=== PATIENT | female | born 1985 | race Caucasian/White ===

== ENCOUNTER 2016-07-30 09:01 | Emergency (ER) | payer MEDICARE, MEDICAID ==
[2016-07-30 09:24] VITALS: BP 111/54
--- NOTE | 2016-07-30 10:43 | UC ---
Skin Complaint HPI - HPI Summary HPI Summary: PT IS 14 WEEKS . HERE TODAY FOR LEFT FOOT PLANTAR LESION. PT THOUGHT IT WAS A CORN. HAS USING A TOPICAL SALVE TO THE AREA. AREA IS GETTING BIGGER AND PAINFUL. having some irritation at this time and painful to walk. been taking APAP as she is . aware no more than 600 mg PO QID. [ End ] - History of Current Complaint Chief Complaint: UCLowerExtremity Time Seen by Provider: 07/30/16 10:34 Stated Complaint: LEFT FOOT COMPLAINT Hx Obtained From: Patient Hx Last Menstrual Period: APR 16, 2016 ?: Yes Onset/Duration: Gradual Onset Skin Exposure Onset/Duration: Weeks Ago Onset Severity: Mild Current Severity: Moderate Location: Foot (Left) Aggravating: OTC Meds Alleviating: Nothing - Allergy/Home Medications Allergies/Adverse Reactions: Allergies Allergy/AdvReac Type Severity Reaction Status Date / Time Methadone Allergy Severe Altered Verified 07/30/16 09:16 Mental Status Morphine Allergy Severe Altered Verified 07/30/16 09:16 Mental Status Ethinyl Estradiol Allergy Hives Verified 07/30/16 09:16 [From NuvaRing] Etonogestrel [From NuvaRing] Allergy Hives Verified 07/30/16 09:16 Medroxyprogesterone Allergy Hives Verified 07/30/16 09:16 [From Depo-Provera] control Allergy Pain Uncoded 07/30/16 09:16 Review of Systems Constitutional: Negative Skin: Other - skin on left foot concern Eyes: Negative ENT: Negative Respiratory: Negative Cardiovascular: Negative Gastrointestinal: Negative Genitourinary: Negative Motor: Negative Neurovascular: Negative Musculoskeletal: Negative Neurological: Negative Psychological: Negative All Other Systems Reviewed And Are Negative: Yes PMH/Surg Hx/FS Hx/Imm Hx Previously Healthy: Yes Cardiovascular History Of: Reports: Hypertension Respiratory History Of: Reports: Asthma Psychological History Of: Reports: Depression - HX OF - Surgical History Surgical History: Yes Surgery Procedure, Year, and Place: carpel tunnel in both wrists [facility]-2014. shoulder surgery Nov 2014 - Social History Occupation: Employed Full-time Lives: With Family Alcohol Use: None Substance Use Type: None Smoking Status (MU): Light Every Day Tobacco Smoker Type: Cigarettes Amount Used/How Often: 6 CIGS PER DAY Have You Smoked in the Last Year: Yes Household Exposure Type: Cigarettes Physical Exam Triage Information Reviewed: Yes Appearance: Well-Appearing, No Pain Distress, Well-Nourished Vital Signs: Initial Vital Signs Temp 97.9 F 07/30/16 09:17 Pulse 74 07/30/16 09:17 Resp 16 07/30/16 09:17 BP 111/54 07/30/16 09:17 Pulse Ox 99 07/30/16 09:17 Vital Signs Reviewed: Yes Eye Exam: Normal ENT Exam: Normal Respiratory Exam: Normal Cardiovascular Exam: Normal Musculoskeletal Exam: Normal Neurological Exam: Normal Psychological Exam: Normal Skin Exam: Normal Skin: Positive: Other - left plantar foot with dried salisylic acid on it, some redness and excoriation around the corn and tenderness to palpation. no discharge. no induration. no streaking. Course/Dx - Diagnoses Provider Diagnoses: corn on left plantar aspect of foot Discharge - Discharge Plan Condition: Good Disposition: HOME Patient Education Materials: Plantar Wart (ED) Referrals: PETRA Barboza [Primary Care Provider] - 3 Days KEELEY GARCIA [Doctor of Podiatric Medicine] - As Soon As Possible (podiatry referral ) Additional Instructions: You appear to have a plantar CORN/CALLOUS at this time -- I printed the wart information as it was the closest to your diagnosis of the options I had. Please call a podiatry doctor to seek care GRANT. Thank you
== END 2016-07-30 11:04 | disposition home or self-care (01) ==
LOC: UCCORT 09:01
DX: O26.892 Other specified pregnancy related conditions, second trimester (principal); L84 Corns and callosities; Z3A.15 15 weeks gestation of pregnancy; I10 Essential (primary) hypertension; J45.909 Unspecified asthma, uncomplicated; F32.9 Major depressive disorder, single episode, unspecified; Z88.8 Allergy status to other drugs, medicaments and biological substances; Z88.5 Allergy status to narcotic agent; F17.210 Nicotine dependence, cigarettes, uncomplicated
CPT/HCPCS: 99211; G0463

== ENCOUNTER 2016-12-05 08:57 | Emergency (ER) | payer MEDICARE, MEDICAID ==
--- NOTE | 2016-12-05 09:24 | UC ---
Throat Pain/[place] HPI - HPI Summary HPI Summary: Patient has had increased sinus pressure and AMOS for the past 2 weeks, she is 35 weeks . she has alsow had some chest tightness and wheezing, - History of Current Complaint Stated Complaint: SINUS COMPLAINT Time Seen by Provider: 12/05/16 09:06 Hx Obtained From: Patient Hx Last Menstrual Period: APR 16, 2016 ?: No Onset/Duration: Sudden Onset, Lasting Weeks Severity: Severe Associated Signs & Symptoms: Positive: Dysphagia, Sinus Discomfort, Nasal Discharge - Allergies/Home Medications Allergies/Adverse Reactions: Allergies Allergy/AdvReac Type Severity Reaction Status Date / Time Methadone Allergy Severe Altered Verified 07/30/16 09:16 Mental Status Morphine Allergy Severe Altered Verified 07/30/16 09:16 Mental Status Ethinyl Estradiol Allergy Hives Verified 07/30/16 09:16 [From NuvaRing] Etonogestrel [From NuvaRing] Allergy Hives Verified 07/30/16 09:16 Medroxyprogesterone Allergy Hives Verified 07/30/16 09:16 [From Depo-Provera] control Allergy Pain Uncoded 07/30/16 09:16 PMH/Surg Hx/FS Hx/Imm Hx Previously Healthy: Yes - Surgical History Surgical History: Yes Surgery Procedure, Year, and Place: carpel tunnel in both wrists [facility]-2014. shoulder surgery Nov 2014 - Family History Known Family History: Negative: Cardiac Disease, Hypertension - Social History Alcohol Use: None Substance Use Type: None Smoking Status (MU): Light Every Day Tobacco Smoker Type: Cigarettes Amount Used/How Often: 6 CIGS PER DAY Have You Smoked in the Last Year: Yes Household Exposure Type: Cigarettes Review of Systems Constitutional: Negative Skin: Negative Eyes: Negative ENT: Sore Throat, Ear Ache, Nasal Discharge, Sinus Congestion, Sinus Pain/ Tenderness Respiratory: Cough Cardiovascular: Negative Gastrointestinal: Negative Genitourinary: Negative Motor: Negative Neurovascular: Negative Musculoskeletal: Negative Neurological: Negative Psychological: Negative Is Patient Immunocompromised?: No All Other Systems Reviewed And Are Negative: Yes Physical Exam Triage Information Reviewed: Yes Appearance: Well-Nourished, Ill-Appearing, Pain Distress Vital Signs Reviewed: Yes Eye Exam: Normal ENT: Positive: Pharyngeal erythema, Nasal congestion, Nasal drainage, TM bulging Dental Exam: Normal Neck exam: Normal Respiratory Exam: Normal Respiratory: Positive: Chest non-tender, No respiratory distress, No accessory muscle use, Wheezing, Expiration Cardiovascular Exam: Normal Cardiovascular: Positive: RRR, No Murmur, Pulses Normal Abdominal Exam: Normal Abdomen Description: Positive: Nontender, No Organomegaly, Soft Bowel Sounds: Positive: Present Musculoskeletal Exam: Normal Neurological Exam: Normal Psychological Exam: Normal Skin Exam: Normal Throat Pain/Nasal Course/Dx - Course Course Of Treatment: hx obtained, exam performed ,meds reviewed, treated for sinusitis - Differential Dx/Diagnosis Differential Diagnosis/HQI/PQRI: Influenza, Laryngitis, Pharyngitis, Sinusitis, URI Provider Diagnoses: SInusitis. wheezing Discharge - Discharge Plan Condition: Stable Disposition: HOME Patient Education Materials: Sinusitis (ED) Additional Instructions: 1. take the medication as prescribed. 2. Get plenty of rest and increase fluid intake 3. Tylenol for headache and fever 4. Follow up with any symtpoms worsening
[2016-12-05 09:25] VITALS: BP 113/78
== END 2016-12-05 09:50 | disposition home or self-care (01) ==
LOC: UCCORT 08:57
DX: O26.893 Other specified pregnancy related conditions, third trimester (principal); J32.9 Chronic sinusitis, unspecified; R06.2 Wheezing; Z3A.35 35 weeks gestation of pregnancy; Z88.5 Allergy status to narcotic agent; Z88.8 Allergy status to other drugs, medicaments and biological substances; F17.210 Nicotine dependence, cigarettes, uncomplicated
CPT/HCPCS: 99212; G0463

== ENCOUNTER 2016-12-11 08:11 | Emergency (ER) | payer MEDICARE, MEDICAID ==
[2016-12-11 08:23] VITALS: BP 135/74
--- NOTE | 2016-12-11 08:46 | UC ---
Throat Pain/[place] HPI - HPI Summary HPI Summary: Nasal congestion for a few days and she has been on amoxacillin without much help. She now feels like she has "big luge" in the back of her throat with mild sore throat. no fever. no daily medications. she has allergy to bee sting but hx of angioedema. - History of Current Complaint Chief Complaint: UCRespiratory Stated Complaint: SORE THROAT Time Seen by Provider: 12/11/16 08:27 Hx Obtained From: Patient Hx Last Menstrual Period: APR 16, 2016 ?: Yes Onset/Duration: Gradual Onset, Lasting Hours Severity: Moderate Cough: None Associated Signs & Symptoms: Positive: FB Sensation, Sinus Discomfort, Nasal Discharge. Negative: Fever, Vomiting, Rash - Allergies/Home Medications Allergies/Adverse Reactions: Allergies Allergy/AdvReac Type Severity Reaction Status Date / Time Methadone Allergy Severe Altered Verified 12/11/16 08:16 Mental Status Morphine Allergy Severe Altered Verified 12/11/16 08:16 Mental Status Ethinyl Estradiol Allergy Hives Verified 12/11/16 08:16 [From NuvaRing] Etonogestrel [From NuvaRing] Allergy Hives Verified 12/11/16 08:16 Medroxyprogesterone Allergy Hives Verified 12/11/16 08:16 [From Depo-Provera] control Allergy Pain Uncoded 12/11/16 08:16 Home Medications: Home Medications Hydrocodone-Acetaminophen [Hydrocodone/Acetaminophen 10-325 mg] 1 tab QID PRN [History Confirmed 12/11/16] Ondansetron TAB* [Zofran 4 MG Tab*] 1 tab BID PRN 12/11/16 [History Confirmed ] PMH/Surg Hx/FS Hx/Imm Hx Previously Healthy: No - bee sting allergy - Surgical History Surgical History: Yes Surgery Procedure, Year, and Place: carpel tunnel in both wrists [facility]-2014. shoulder surgery Nov 2014 - Family History Known Family History: Negative: Cardiac Disease, Hypertension - Social History Lives: With Family Alcohol Use: None Substance Use Type: None Smoking Status (MU): Light Every Day Tobacco Smoker Type: Cigarettes Amount Used/How Often: 6 CIGS PER DAY Have You Smoked in the Last Year: Yes Household Exposure Type: Cigarettes - Immunization History Most Recent Influenza Vaccination: NONE 2017 Review of Systems ENT: Sore Throat, Sinus Congestion Respiratory: Negative All Other Systems Reviewed And Are Negative: Yes Physical Exam Triage Information Reviewed: Yes Appearance: Well-Appearing, No Pain Distress, Well-Nourished Vital Signs: Initial Vital Signs Temp 97.8 F 12/11/16 08:18 Pulse 82 12/11/16 08:18 Resp 18 12/11/16 08:18 BP 135/74 12/11/16 08:18 Pulse Ox 99 12/11/16 08:18 Vital Signs Reviewed: Yes ENT: Positive: Other: - uvula swelling without tonsillar pillar swelling or swelling of tongue, soft palate or lips.. Negative: Tonsillar swelling, Tonsillar exudate, Trismus, Muffled/hoarse voice Neck exam: Normal Neck: Positive: Supple, Nontender, No Lymphadenopathy Respiratory Exam: Normal Cardiovascular Exam: Normal Abdominal Exam: Normal Musculoskeletal Exam: Normal Neurological Exam: Normal Psychological Exam: Normal Skin Exam: Normal Throat Pain/Nasal Course/Dx - Course Course Of Treatment: we discussed possible allergic reaction but there has been nothing new. she swallowed a bug yesterday but no obvious sting or bite. this started this mrbrian .she has had congestion and post nasal drip. no other signs of angioedema. - Differential Dx/Diagnosis Differential Diagnosis/HQI/PQRI: Epiglottitis, Foreign Body, Influenza, Laryngitis, Axel's Angina, Mononucleosis, Otitis Media, Peritonsillar Abscess , Pharyngitis, Tonsillitis, URI Provider Diagnoses: uvula swelling. uvulaitis. Discharge - Discharge Plan Condition: Good Disposition: HOME Patient Education Materials: Uvulitis (ED) Referrals: Rosa Crowell MD [Primary Care Provider] - If Needed
== END 2016-12-11 08:54 | disposition home or self-care (01) ==
LOC: UCCORT 08:11
DX: K12.2 Cellulitis and abscess of mouth (principal); Z72.0 Tobacco use; Z88.5 Allergy status to narcotic agent; Z91.030 Bee allergy status; Z88.8 Allergy status to other drugs, medicaments and biological substances
CPT/HCPCS: 87651; 99211; G0463

== ENCOUNTER 2017-05-10 07:05 | Emergency (ER) | payer MEDICARE, MEDICAID ==
[2017-05-10 07:25] VITALS: BP 143/75
--- NOTE | 2017-05-10 07:34 | UC ---
Throat Pain/[place] HPI - HPI Summary HPI Summary: sore throat x 1 day + fever, chills, no cough, + nasal congestion - History of Current Complaint Chief Complaint: UCRespiratory Stated Complaint: ST/NECK PAIN/SINUS Time Seen by Provider: 05/10/17 07:28 Hx Obtained From: Patient Hx Last Menstrual Period: 04/26/17 ?: No Onset/Duration: Gradual Onset, Lasting Days - 1, Still Present Severity: Moderate Pain Intensity: 6 Cough: None Associated Signs & Symptoms: Positive: Sinus Discomfort, Nasal Discharge, Fever. Negative: Dysphagia, FB Sensation, Drooling, Wheezing, Hoarseness, Rash - Allergies/Home Medications Allergies/Adverse Reactions: Allergies Allergy/AdvReac Type Severity Reaction Status Date / Time MS Methadone [Methadone] Allergy Severe Altered Verified 05/10/17 07:18 Mental Status MS Morphine [Morphine] Allergy Severe Altered Verified 05/10/17 07:18 Mental Status MS Ethinyl Estradiol Allergy Hives Verified 05/10/17 07:18 [From NuvaRing] MS Etonogestrel Allergy Hives Verified 05/10/17 07:18 [From NuvaRing] MS Medroxyprogesterone Allergy Hives Verified 05/10/17 07:18 [From Depo-Provera] control Allergy Pain Uncoded 05/10/17 07:18 Home Medications: Home Medications Bcp Starts With J 1 tab PO DAILY 05/10/17 [History] Lisinopril 5 mg PO BID 05/10/17 [History Confirmed 05/10/17] PMH/Surg Hx/FS Hx/Imm Hx Cardiovascular History: Hypertension Respiratory History: Asthma - Surgical History Surgical History: Yes Surgery Procedure, Year, and Place: carpel tunnel in both wrists [facility]-2014. shoulder surgery Nov 2014 - Family History Known Family History: Negative: Cardiac Disease, Hypertension - Social History Alcohol Use: None Substance Use Type: None Smoking Status (MU): Light Every Day Tobacco Smoker Type: Cigarettes Amount Used/How Often: 5 CIGS PER DAY Have You Smoked in the Last Year: Yes Household Exposure Type: Cigarettes - Immunization History Most Recent Influenza Vaccination: NONE 2016 Review of Systems Constitutional: Fever, Chills, Fatigue Skin: Negative Eyes: Negative ENT: Sore Throat, Nasal Discharge, Sinus Congestion Respiratory: Negative Cardiovascular: Negative Gastrointestinal: Negative Is Patient Immunocompromised?: No All Other Systems Reviewed And Are Negative: Yes Physical Exam Triage Information Reviewed: Yes Appearance: Well-Appearing, No Pain Distress, Well-Nourished Vital Signs: Initial Vital Signs Temp 98.1 F 05/10/17 07:19 Pulse 91 05/10/17 07:19 Resp 18 05/10/17 07:19 BP 143/75 05/10/17 07:19 Pulse Ox 99 05/10/17 07:19 Vital Signs Reviewed: Yes Eyes: Positive: Conjunctiva Clear ENT: Positive: Normal ENT inspection, Hearing grossly normal, Pharyngeal erythema, Nasal congestion, TMs normal. Negative: Sinus tenderness Neck: Positive: Supple, Nontender, No Lymphadenopathy Respiratory Exam: Normal Respiratory: Positive: Chest non-tender, Lungs clear, Normal breath sounds Cardiovascular: Positive: RRR, No Murmur, Pulses Normal Skin Exam: Normal Throat Pain/Nasal Course/Dx - Differential Dx/Diagnosis Provider Diagnoses: uri Discharge - Discharge Plan Condition: Stable Disposition: HOME Patient Education Materials: Upper Respiratory Infection (ED) Forms: *Work Release Referrals: Rosa Crowell MD [Primary Care Provider] - If Needed
== END 2017-05-10 07:54 | disposition home or self-care (01) ==
LOC: UCCORT 07:05
DX: J06.9 Acute upper respiratory infection, unspecified (principal); F17.210 Nicotine dependence, cigarettes, uncomplicated; Z88.5 Allergy status to narcotic agent; Z88.8 Allergy status to other drugs, medicaments and biological substances
CPT/HCPCS: 99212; G0463

== ENCOUNTER 2017-09-25 12:59 | Emergency (ER) | payer MEDICARE, MEDICAID ==
[2017-09-25 13:19] VITALS: BP 132/80
--- NOTE | 2017-09-25 13:55 | UC ---
Throat Pain/[place] HPI - HPI Summary HPI Summary: Pt with sinus pressure,progressive green discharge, pnd and ear congestion R>L over 4 days + cough, non productive no fever, chills No SOB No over the counter meds taken Pt with h/o sinus infections - feels similar pt's medications reviewed this visit - History of Current Complaint Chief Complaint: UCRespiratory Stated Complaint: SINUS COMPLAINT Time Seen by Provider: 09/25/17 13:35 Hx Obtained From: Patient Hx Last Menstrual Period: 09/21/16 Pain Intensity: 7 - Allergies/Home Medications Allergies/Adverse Reactions: Allergies Allergy/AdvReac Type Severity Reaction Status Date / Time methadone Allergy Severe Altered Verified 09/25/17 13:10 Mental Status morphine Allergy Severe Altered Verified 09/25/17 13:10 Mental Status ethinyl estradiol Allergy Hives Verified 09/25/17 13:10 [From NuvaRing] etonogestrel [From NuvaRing] Allergy Hives Verified 09/25/17 13:10 medroxyprogesterone Allergy Hives Verified 09/25/17 13:10 [From Depo-Provera] Home Medications: Home Medications Omeprazole CAP* [Prilosec CAP* 20 MG] 40 mg PO DAILY 09/25/17 [History Confirmed 09/25/17] PMH/Surg Hx/FS Hx/Imm Hx Previously Healthy: Yes - Surgical History Surgical History: Yes Surgery Procedure, Year, and Place: carpel tunnel in both wrists [facility]. shoulder surgery Nov 2014 - Family History Known Family History: Positive: Diabetes Negative: Cardiac Disease, Hypertension - Social History Occupation: Works From/At Home Lives: With Family Alcohol Use: None Substance Use Type: None Smoking Status (MU): Light Every Day Tobacco Smoker Type: Cigarettes Amount Used/How Often: 1/2 PPD Have You Smoked in the Last Year: Yes Household Exposure Type: Cigarettes - Immunization History Most Recent Influenza Vaccination: NONE 2017 Review of Systems All Other Systems Reviewed And Are Negative: Yes Physical Exam - Summary Physical Exam Summary: Vital Signs Reviewed: Yes A+Ox3, no distress Eyes: Conjunctiva Clear, ROXIE, EOM intact and full ENT: Hearing grossly normal TM x2 clear with fluid R>L turbinates inflammed and boggy +PND uvula midline no exudate, no erythema neck: supple Respiratory: Positive: No respiratory distress, No accessory muscle use + BS throughout no w/r Cardiovascular: skin color reflect adequate perfusion RRR nl s1, s2 ad soft + BS Musculoskeletal Exam: CARLSON x 4 without difficulty Neurological: Positive: Alert, ambulatory without difficulty Psychological: Positive: Normal Response To Family Skin: Positive: no rash, no ecchymosis Triage Information Reviewed: Yes Vital Signs: Initial Vital Signs Temp 96 F 09/25/17 13:12 Pulse 70 09/25/17 13:12 Resp 16 09/25/17 13:12 BP 132/80 09/25/17 13:12 Pulse Ox 100 09/25/17 13:12 Throat Pain/Nasal Course/Dx - Course Course Of Treatment: Pt with sinus cogestion ear pressure and pnd x progressive. Pt with + congestion and exam c/w sinus infection. will give abx. floinase. decongestant. decrease smoking. secretion precautions - Differential Dx/Diagnosis Provider Diagnoses: sinustis Discharge - Sign-Out/Discharge Documenting (check all that apply): Discharge/Admit/Transfer - Discharge Plan Condition: Stable Disposition: HOME Prescriptions: Loratadine 10 mg PO DAILY #30 tablet Sulfamethox/Trimethoprim DS* [Bactrim DS 800/160 TAB*] 1 tab PO BID #14 tab Patient Education Materials: Lymphadenopathy (ED), Rhinosinusitis (ED) Referrals: Rosa Crowell MD [Primary Care Provider] - Additional Instructions: - Stay well hydrated. Drink plenty of non-alcoholic, non-caffinated beverages. - Alternate ibuprofen (Advil, Motrin) 600mg and Tylenol every 3 hours for pain or fever. Take with food. Do NOT take for more than 4-5 days. - These infections are spread by secretions - do NOT share eating or drinking utensils - clean items you share with other people such as cell phones, computer mouse, TV remote, computer tablets,etc. Once you have been antibiotics for 2 days, change your toothbrush and your pillowcase. - get plenty of restful sleep - humidify the air in the room where you sleep - boil water, run a hot steam shower, vaporizer, cups of water by heat register - okay to take over the counter decongestant and cough medication. you have also been given a prescription for allergy medication - work to decrease cigarette smoke - apply warm soaks to your lymph node - if this persists, your primary may consider ordering an ultrasound or blood work - contact your doctor or return with questions or concerns - Billing Disposition and Condition Condition: STABLE Disposition: Home
== END 2017-09-25 14:15 | disposition home or self-care (01) ==
LOC: UCCORT 12:59
DX: J32.9 Chronic sinusitis, unspecified (principal); Z88.5 Allergy status to narcotic agent; Z88.8 Allergy status to other drugs, medicaments and biological substances; F17.210 Nicotine dependence, cigarettes, uncomplicated
CPT/HCPCS: 99212; G0463

== ENCOUNTER 2018-09-24 18:55 | Emergency (ER) | payer MEDICAID, MEDICARE ==
[2018-09-24 19:19] VITALS: BP 126/71
--- NOTE | 2018-09-24 20:10 | ED ---
Back Pain - HPI Summary HPI Summary: 33 yr old female with the complaint of low back pain. Onset of pain on Tuesday. Pain is located in the lower T spine and the upper lumbar spine. No radiation into the leg. No abdominal pain. No fever or chills. No bowel or bladder incontinence. No numbness or weakness in the legs. - History of Current Complaint Chief Complaint: UCBackPain Stated Complaint: LOW BACK PAIN Time Seen by Provider: 09/24/18 19:51 Hx Last Menstrual Period: 09/21/16 Pain Intensity: 9 - Allergies/Home Medications Allergies/Adverse Reactions: Allergies Allergy/AdvReac Type Severity Reaction Status Date / Time methadone Allergy Severe Altered Verified 09/24/18 19:19 Mental Status morphine Allergy Severe Altered Verified 09/24/18 19:19 Mental Status ethinyl estradiol Allergy Hives Verified 09/24/18 19:19 [From NuvaRing] etonogestrel [From NuvaRing] Allergy Hives Verified 09/24/18 19:19 medroxyprogesterone Allergy Hives Verified 09/24/18 19:19 [From Depo-Provera] Home Medications: Home Medications Omeprazole 40 mg PO DAILY 09/24/18 [History Confirmed 09/24/18] Ondansetron HCl [Zofran] 4 mg PO TID PRN 09/24/18 [History Confirmed 09/24/18] lamoTRIgine TAB(*) [LaMICtal TAB(*)] 150 mg PO DAILY 09/24/18 [History Confirmed 09/24/18] PMH/Surg Hx/FS Hx/Imm Hx Cardiovascular History: Reports: Hx Hypertension Respiratory History: Reports: Hx Asthma GI History: Reports: Hx Gastroesophageal Reflux Disease Musculoskeletal History: Reports: Hx Fibromyalgia, Hx Orthopedic Injury - left shoulder, Other Musculoskeletal History Sensory History: Denies: Hx Contacts or Glasses, Hx Hearing Aid Opthamlomology History: Denies: Hx Contacts or Glasses Neurological History: Reports: Hx Headaches, Other Neuro Impairments/Disorders - FIBROMYALGIA Psychiatric History: Reports: Hx Depression - HX OF - Surgical History Surgery Procedure, Year, and Place: carpel tunnel in both wrists [facility]-2014. shoulder surgery Nov 2014 Hx Anesthesia Reactions: No Infectious Disease History: No Infectious Disease History: Denies: Traveled Outside the [place] in Last 30 Days - Family History Known Family History: Positive: Diabetes Negative: Cardiac Disease, Hypertension - Social History Alcohol Use: None Substance Use Type: Reports: None Smoking Status (MU): Light Every Day Tobacco Smoker Type: Cigarettes Amount Used/How Often: 1/2 PPD Have You Smoked in the Last Year: Yes Review of Systems Constitutional: Negative Negative: Vomiting, Diarrhea, Nausea Negative: see HPI, burning, dysuria, discharge, frequency, flank pain, urgency Positive: Other - back pain All Other Systems Reviewed And Are Negative: Yes Physical Exam Triage Information Reviewed: Yes Vital Signs On Initial Exam: Initial Vitals Temp Pulse Resp BP Pulse Ox 99.7 F 76 18 126/71 100 09/24/18 19:14 09/24/18 19:14 09/24/18 19:14 09/24/18 19:14 09/24/18 19:14 Vital Signs Reviewed: Yes Appearance: Positive: Well-Appearing, No Pain Distress Skin: Positive: Warm, Skin Color Reflects Adequate Perfusion Head/Face: Positive: Normal Head/Face Inspection Eyes: Positive: EOMI, ROXIE ENT: Positive: Normal ENT inspection Neck: Positive: Nontender Respiratory/Lung Sounds: Positive: Clear to Auscultation, Breath Sounds Present Cardiovascular: Positive: RRR. Negative: Murmur Abdomen Description: Negative: Distended Musculoskeletal: Positive: Strength/ROM Intact Neurological: Positive: Sensory/Motor Intact, Alert, Oriented to Person Place, Time, CN Intact II-III, Normal Gait, Speech Normal Psychiatric: Positive: Normal Diagnostics - Vital Signs Vital Signs Temp Pulse Resp BP Pulse Ox 09/24/18 19:14 99.7 F 76 18 126/71 100 - Laboratory Lab Results: Lab Results 09/24/18 09/24/18 Range/Units 19:22 19:31 POC Urine Color Yellow POC Urine Clarity Clear POC Urine pH 6.5 (5-9) POC Ur Specif [place] 1.010 (1.010-1.030) POC Urine Protein Negative (Negative) POC Ur Glucose (UA) Negative (Negative) POC Urine Ketones Negative (Negative) POC Urine Blood Negative (Negative) POC Urine Nitrite Negative (Negative) POC Urine Bilirubin Negative (Negative) POC Urine Urobilinogen 0.2 (Negative) POC U Leukocyte Esteras Negative (Negative) POC Ur Test Negative (Negative) Lab Statement: Any lab studies that have been ordered have been reviewed, and results considered in the medical decision making process. Back Pain Course/Dx - Course Course Of Treatment: 33 yr old female with back pain. UA neg. Xrays without acute finding with final read pending. FU with PMD. Flexeril script written. - Diagnoses Provider Diagnoses: Back pain Discharge - Sign-Out/Discharge Documenting (check all that apply): Patient Departure All imaging exams completed and their final reports reviewed: No - Discharge Plan Condition: Good Disposition: HOME Patient Education Materials: Low Back Strain (ED) Referrals: Alexia Lay [Primary Care Provider] - 3 Days - Billing Disposition and Condition Condition: GOOD Disposition: Home
--- NOTE | 2018-09-25 13:07 | ED ---
Progress - Progress Note Progress Note: final xray read reviewed; neg Course/Dx - Course Course Of Treatment: 33 yr old female with back pain. UA neg. Xrays without acute finding with final read pending. FU with PMD. Flexeril script written. - Diagnoses Provider Diagnoses: Back pain Discharge - Sign-Out/Discharge Documenting (check all that apply): Patient Departure All imaging exams completed and their final reports reviewed: Yes - Discharge Plan Condition: Good Disposition: HOME Prescriptions: Cyclobenzaprine TAB* [Flexeril 10 MG TAB*] 10 mg PO BID PRN #7 tab PRN Reason: Pain Patient Education Materials: Low Back Strain (ED) Referrals: Alexia Lay [Primary Care Provider] - 3 Days - Billing Disposition and Condition Condition: GOOD Disposition: Home
== END 2018-09-24 21:03 | disposition home or self-care (01) ==
LOC: UCCORT 18:55
DX: M54.5 Low back pain (principal); Z88.5 Allergy status to narcotic agent; I10 Essential (primary) hypertension; F32.9 Major depressive disorder, single episode, unspecified; K21.9 Gastro-esophageal reflux disease without esophagitis; F17.210 Nicotine dependence, cigarettes, uncomplicated
CPT/HCPCS: 72070; 72110; 81003; 84702; 99212; G0463

== ENCOUNTER 2019-02-23 15:39 | Emergency (ER) | payer MEDICARE, OTHER ==
[2019-02-23 16:14] VITALS: BP 121/82
--- NOTE | 2019-02-23 16:47 | UC ---
Throat Pain/[place] HPI - HPI Summary HPI Summary: 33-year-old woman comes in with a chief complaint of upper respiratory tract infection symptoms for 3 days. She's had some rhinorrhea she's had chest congestion and cough. Got yellowish sputum. No fevers measured. Mild sore throat. - History of Current Complaint Chief Complaint: UCGeneralIllness Stated Complaint: SINUS COMPLAINT Time Seen by Provider: 02/23/19 15:42 Hx Last Menstrual Period: 09/21/16 Pain Intensity: 8 - Allergies/Home Medications Allergies/Adverse Reactions: Allergies Allergy/AdvReac Type Severity Reaction Status Date / Time methadone Allergy Severe Altered Verified 02/23/19 16:14 Mental Status morphine Allergy Severe Altered Verified 02/23/19 16:14 Mental Status ethinyl estradiol Allergy Hives Verified 02/23/19 16:14 [From NuvaRing] etonogestrel [From NuvaRing] Allergy Hives Verified 02/23/19 16:14 medroxyprogesterone Allergy Hives Verified 02/23/19 16:14 [From Depo-Provera] Home Medications: Home Medications Furosemide 50 mg PO DAILY 02/23/19 [History Confirmed 02/23/19] PMH/Surg Hx/FS Hx/Imm Hx Previously Healthy: Yes GI/ History: Gastroesophageal Reflux Neurological History: Seizures - Surgical History Surgical History: Yes Surgery Procedure, Year, and Place: carpel tunnel in both wrists [facility]-2014. shoulder,left, surgery Nov 2014. mass removed from stomach-2018 - Family History Known Family History: Positive: Diabetes Negative: Cardiac Disease, Hypertension - Social History Alcohol Use: None Substance Use Type: None Smoking Status (MU): Light Every Day Tobacco Smoker Type: Cigarettes Amount Used/How Often: 1/2 PPD Have You Smoked in the Last Year: Yes Household Exposure Type: Cigarettes - Immunization History Most Recent Influenza Vaccination: NONE 2017 Review of Systems All Other Systems Reviewed And Are Negative: Yes Constitutional: Positive: Other - SEE HPI Skin: Positive: Negative Eyes: Positive: Negative ENT: Positive: Sore Throat, Nasal Discharge, Sinus Congestion Respiratory: Positive: Cough, Other - SEE HPI Cardiovascular: Positive: Negative Gastrointestinal: Positive: Negative Motor: Positive: Negative Neurovascular: Positive: Negative Musculoskeletal: Positive: Negative Neurological: Positive: Negative Psychological: Positive: Negative Is Patient Immunocompromised?: No Physical Exam Triage Information Reviewed: Yes Appearance: No Pain Distress, Well-Nourished, Ill-Appearing - MILD Vital Signs: Initial Vital Signs Temp 96.9 F 02/23/19 16:09 Pulse 68 02/23/19 16:09 Resp 20 02/23/19 16:09 BP 121/82 02/23/19 16:09 Pulse Ox 98 02/23/19 16:09 Vital Signs Reviewed: Yes Eye Exam: Normal Eyes: Positive: Conjunctiva Clear ENT: Positive: Pharyngeal erythema, Nasal congestion, Nasal drainage, TMs normal Neck: Positive: Supple Respiratory: Positive: Lungs clear, Normal breath sounds, No respiratory distress Cardiovascular: Positive: RRR Musculoskeletal: Positive: Strength Intact, ROM Intact Neurological: Positive: Alert, Muscle Tone Normal Psychological: Positive: Normal Response To Family, Age Appropriate Behavior Skin Exam: Normal Throat Pain/Nasal Course/Dx - Course Course Of Treatment: DISCUSSED VIRAL VERSES BACTERIAL INFECTIONS AND THE ROLE OF ANTIBIOTICS. THE PATIENT PREFERS TO BE ON ANTIBIOTICS AT THIS TIME. - Differential Dx/Diagnosis Provider Diagnosis: Upper respiratory infection Discharge ED - Sign-Out/Discharge Documenting (check all that apply): Patient Departure All imaging exams completed and their final reports reviewed: No Studies - Discharge Plan Condition: Stable Disposition: HOME Prescriptions: Amoxicillin PO (*) [Amoxicillin 400 MG/5 ML SUSP*] 880 mg PO BID #220 ml Patient Education Materials: Upper Respiratory Infection (ED) Referrals: Alexia Lay [Primary Care Provider] - Additional Instructions: FOLLOW UP WITH YOUR DOCTOR IF NOT COMPLETELY IMPROVED. GET REEVALUATED SOONER IF NOT IMPROVING OR WORSE OR ANY QUESTIONS OR CONCERNS. - Billing Disposition and Condition Condition: STABLE Disposition: Home
== END 2019-02-23 16:56 | disposition home or self-care (01) ==
LOC: UCCORT 15:39
DX: J06.9 Acute upper respiratory infection, unspecified (principal); F17.210 Nicotine dependence, cigarettes, uncomplicated; Z88.8 Allergy status to other drugs, medicaments and biological substances; Z88.5 Allergy status to narcotic agent
CPT/HCPCS: 99212; G0463

== ENCOUNTER 2019-05-17 18:47 | Emergency (ER) | payer MEDICARE, OTHER ==
--- OUTSIDE RECORDS SUMMARY | 2019-05-17 18:55 | XMS REPORT | Summary of Care ---
:1985 Author Organization [facility] Address [address] [facility] [place] [address] Care Team Providers Name Role Phone Alexia Lay LYNDA Primary Care Provider Reason for Visit Reason Comments New Patient Bump on the left wrist. Pain radiates up the thumb, and up the arm to the elbow. Noted about 1 year ago. Encounter Details Date Type Department Care Team Description 04/19/2019 Office Visit [facility] - Ted Joyce, Ganglion cyst Holley SALDIVAR (Primary Dx) [address] [place], [place] [id number] [place] [address] [phone] Allergies Active Allergy Reactions Severity Noted Date Comments Depo-Provera GI Reaction 04/19/2019 Methadone GI Reaction 04/19/2019 Morphine GI Reaction 04/19/2019 documented as of this encounter (statuses as of 04/19/2019) Medications No known medicationsdocumented as of this encounter (statuses as of 04/19/2019) Active Problems No known active problemsdocumented as of this encounter (statuses as of 2019) Social History Tobacco Use Types Packs/Day Years Used Date Never Smoker Smokeless Tobacco: Never Used Sex Assigned at Date Recorded Not on file Job Start Date Occupation Industry Not on file Not on file Not on file Travel History Travel Start Travel End No recent travel history available. documented as of this encounter Last Filed Vital Signs Not on filedocumented in this encounter Progress Notes Ted Joyce MD - 04/19/2019 9:45 AM EST Name: Rody Mcclain : 1985 Date of service: 04/19/2019 Chief Complaint Patient presents with New Patient Bump on the left wrist. Pain radiates up the thumb, and up the arm to the elbow. Noted about 1 year ago. HPI: Rody Mcclain is a 33-y.o. y/o female, who presents at the request of Jennifer Hennessy for evaluation. Patient has a cyst on her left wrist. She has previously had a cyst removed on the right wrist. She has a history of fibromyalgia. She states that she had a diagnosis in the past of CRPS. The cyst causes her mild pain with wrist motion. A changes in size periodically PAST MEDICAL HISTORY: She has no past medical history on file. PAST SURGICAL HISTORY: She has no past surgical history on file. MEDICATIONS: No current outpatient medications on file. ALLERGIES: She is allergic to depo-provera; methadone; and morphine. SOCIAL HISTORY: She reports that she has never smoked. She has never used smokeless tobacco. FAMILY HISTORY: family history is not on file. ROS: Nursing Notes: Herlinda Chopra LPN 04/19/2019 10:07 AM Addendum NAME: Rody Mcclain : 1985 DATE OF SERVICE: 04/19/2019 CONSTITUTIONAL: Negative. HEENT: Negative. EYES: Negative RESPIRATORY: Negative. CARDIOVASCULAR: Negative. GASTROINTESTINAL: Negative. GENITOURINARY: Negative. INTEGUMENT/BREAST: Negative. HEMATOLOGIC/LYMPHATIC: Negative. MUSCULOSKELETAL: Negative except left wrist lump NEUROLOGICAL: Negative. BEHAVIORAL/PSYCH: Negative. ENDOCRINE: Negative. ALLERGIC/IMMUNOLOGIC: Negative. AUTHOR: Herlinda Chopra LPN 04/19/2019 09:44 I reviewed the above and have made changes as appropriate. Physical Exam: Vitals: <Not on file> Gen: NAD, A&Ox3 SKIN/PALPATION: Normal rugal patterns, sweat, turgor, and temperature. Cuticles , nails, nail curvature, and pulp bulk are essentially normal in appearance. No skin changes. SWELLING: none WARMTH: no warmth DEFORMITY: no gross deformity or malalignment NEUROLOGICAL EXAM: Sensation intact to light touch. VASCULAR EXAM: Capillary refill is <2 seconds. There is a 8 mm ballotable firm mobile mass at the radial aspect of the volar wrist. Strength is normal joints are stable range of motion is normal. There is slight pain with full extension and full flexion Imaging & Tests: Assessment: ICD-9-CM ICD-10-CM 1. Ganglion cyst 727.43 M67.40 Ganglion cyst left wrist minimally symptomatic. Given the patient's history of CRPS it would be better not to operate. Plan & Discussion: --Patient will return to me if there is any change Ted Joyce MD Hand Surgery 04/19/2019 documented in this encounter Plan of Treatment Health Maintenance Due Date Last Done Comments DTaP/Tdap/Td Vaccines (1 - Tdap) 06/28/1995 DEPRESSION SCREENING 1996 HIV SCREENING 06/28/1999 PAP SMEAR 2005 INFLUENZA VACCINE (#1) 2018 HEPATITIS A IMMUNIZATION SERIES Aged Out No longer eligible based on patient's age to complete this topic HPV IMMUNIZATION SERIES Aged Out No longer eligible based on patient's age to complete this topic MENINGOCOCCAL VACCINE IMM Aged Out No longer eligible based on patient's age to complete this topic PNEUMOCOCCAL 0-64 YRS Aged Out No longer eligible based on patient's age to complete this topic documented as of this encounter Results Not on filedocumented in this encounter Visit Diagnoses Diagnosis Ganglion cyst Ganglion, unspecified documented in this encounter Insurance Payer Benefit Plan / Subscriber ID Effective Dates Phone Address Type Group [facility] xxxxxxxxxxx 2018-Present [place] xxxxxxxx 2019-Present Medicaid [place] ([place]) [place] [address] documented as of this encounter
--- OUTSIDE RECORDS SUMMARY | 2019-05-17 18:55 | XMS REPORT | Continuity of Care Document ---
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 Onset: 2014 shoulder region Superior glenoid labrum lesion of left Antoine Cruz M.D. Onset: 12/18/2014 shoulder, subsequent encounter Other dislocation of right shoulder joint, Antoine Cruz M.D. Onset: 2014 subsequent encounter Lesion of ulnar nerve Antoine Cruz M.D. Onset: 05/21/2015 Late effect of dislocation Antoine Cruz M.D. Onset: 05/21/2015 Anxiety disorder Onset: 02/08/2018 Tobacco user Onset: 02/08/2018 Seasonal allergic rhinitis Onset: 09/19/2009 Opioid dependence Onset: 02/08/2018 Migraine without aura Onset: 08/30/2017 Maxillary sinusitis Onset: 04/07/2018 Internal hemorrhoids Onset: 04/07/2018 Hypertensive disorder Onset: 01/14/2016 Gastroparesis syndrome Onset: 12/08/2017 Gastroesophageal reflux disease Onset: 02/08/2018 Fibromyositis Onset: 01/11/2018 Family history of breast cancer Onset: 02/07/2018 Chronic pain syndrome Onset: 02/03/2009 Body mass index 40+ - severely obese Onset: 02/08/2018 Salazar's esophagus Onset: 02/08/2018 Social History Type Date Description Comments Sex Unknown Tobacco Use Start: Unknown currently smokes 1/2 Pack Daily ETOH Use Denies alcohol use Recreational Drug Use Denies Drug Use Tobacco Use Start: Unknown Light tobacco smoker (10 or fewer cigarettes/day) Smoking Status Reviewed: 04/27/19 Light tobacco smoker (10 or fewer cigarettes/day) Enjoy Exercising Does not enjoy exercising Tattoo/Piercing Tattoo EVERYWHERE Tattoo/Piercing Piercing EVERYWHERE Smoke Alarms Yes Allergies, Adverse Reactions, Alerts Active Allergies Reaction Severity Comments Date Ortho-Cyclen OCP Allergy 10/22/2008 Methadone HCL severe vomiting black out severe Severe 05/05/2018 headache Morphine 11/20/2014 Morphine Sulfate black out vomiting Severe 05/05/2018 Methadone 11/20/2014 Medications Active Medications SIG Qnty Indications Ordering Provider Date Omeprazole 1 daily Unknown 40mg Capsules DR Hydrocodone-Acetamin Take One Tablet By Unknown ophen Mouth Twice a day 5-325mg Tablets Enskyce Take One Tablet By Unknown 0.15-30mg-mcg Mouth Every Day Tablets Skip Placebo Week Take Continuosly Clonidine HCL Take One Tablet By Unknown 0.1mg Mouth Up Twice A Day Tablets as Needed For Anxiety Or Withdrawal Symptoms Divalproex Sodium Take One Tablet By Unknown Mouth Twice A Day 250mg Tablets DR For Anxiety And Depression History Medications [place] 1 po twice a day on 20tabs Nona Wheeler MD 04/26/2019 - 10-325mg days of physical 04/26/2019 Tablets therapy Immunizations CPT Code Status Date Vaccine Lot # [id number] Given 12/29/1992 Hepatitis B Vaccine Vital Signs Date Vital Result Comment 04/27/2019 8:56am BP Systolic Sitting Left Arm 104 mmHg BP Diastolic Sitting Left Arm 76 mmHg Heart Rate 71 /min 04/04/2019 11:04am BP Systolic Sitting Left Arm 124 mmHg BP Diastolic Sitting Left Arm 79 mmHg Body Temperature 96.9 F Heart Rate 75 /min Respiratory Rate 20 /min Weight 212.00 lb O2 % BldC Oximetry 100 % Results Description No Information Available Procedures Date Code Description Status 04/04/2019 70083 Radiology, Wrist Complete Completed 04/04/2019 31738 Radiology, Shoulder: Two Views (Sso) Completed 04/04/2019 27654 Radiology, Shoulder: Two Views (Sso) Completed Medical Devices Description No Information Available Encounters Type Date Location Provider Dx Diagnosis Office Visit 04/27/2019 Orthopaedic Office Jennifer Hennessy, M25.511 Pain in right 9:15a PA shoulder M25.512 Pain in left shoulder Office Visit 04/04/2019 11:00a Orthopaedic Office Jennifer Hennessy, M25.512 Pain in left PA shoulder M25.511 Pain in right shoulder M67.432 Ganglion, left wrist M79.7 Fibromyalgia Assessments Date Code Description Provider 04/27/2019 M25.511 Pain in right shoulder Jennifer Hennessy, [place] 04/27/2019 M25.512 Pain in left shoulder Jennifer Hennessy, PA 04/04/2019 M25.512 Pain in left shoulder Jennifer Hennessy, PA 04/04/2019 M25.511 Pain in right shoulder Jennifer Hennessy, PA 04/04/2019 M67.432 Ganglion, left wrist Jennifer Hennessy, [place] 04/04/2019 M79.7 Fibromyalgia Jennifer Hennessy, [place] Plan of Treatment 04/27/2019 - Gerhard Jennifer, PAM25.511 Pain in right shoulderComments:We will go ahead and re-attempt authorization for bilateral shoulder MRI's. Patient is having significant pain. She spelled physical therapy due to intolerance of pain with therapy. Follow up after the MRI's.M25.512 Pain in left shoulder Functional Status Description No Information Available Mental Status Description No Information Available Referrals Refer to Reason for Referral Status Appt Date Ted Cunha MD left wrist radial dorsal ganglion Patient Notified 2019 Rody, I have given your xray CD and records to the staff of Dr. Joyce. If the below date and time do not work, please call them to reschedule. Thank you. Zainab [facility] [address] [place] [address] [place] [address] [phone]
[2019-05-17 19:20] VITALS: BP 143/77
--- NOTE | 2019-05-17 19:49 | UC ---
Hand/Wrist HPI - HPI Summary HPI Summary: middle finger, possible infection for past week - History Of Current Complaint Chief Complaint: UCSkin Stated Complaint: RIGHT MIDDLE FINGER COMPLAINT Time Seen by Provider: 05/17/19 19:46 Hx Obtained From: Patient Hx Last Menstrual Period: 09/21/16 Onset/Duration: Gradual Onset, Lasting Days Severity Initially: Severe Severity Currently: Severe Pain Intensity: 9 Character Of Pain: Aching, Throbbing Aggravating Factor(s): Movement Alleviating Factor(s): Nothing Associated Signs And Symptoms: Positive: Swelling, Redness - Allergies/Home Medications Allergies/Adverse Reactions: Allergies Allergy/AdvReac Type Severity Reaction Status Date / Time methadone Allergy Severe Altered Verified 05/17/19 19:20 Mental Status morphine Allergy Severe Altered Verified 05/17/19 19:20 Mental Status ethinyl estradiol Allergy Hives Verified 05/17/19 19:20 [From NuvaRing] etonogestrel [From NuvaRing] Allergy Hives Verified 05/17/19 19:20 medroxyprogesterone Allergy Hives Verified 05/17/19 19:20 [From Depo-Provera] Home Medications: Home Medications Albuterol HFA INHALER* [Ventolin HFA Inhaler*] 1 puff INH Q4H PRN #1 mdi [Rx Confirmed 05/17/19] Desogestrel-Ethinyl Estradiol [Juleber 0.15-30 mg-Mcg] 1 tab PO DAILY 01/23/18 [ History Confirmed 05/17/19] Metoclopramide HCl 10 mg PO TID WITH MEALS 01/23/18 [History Confirmed 05/17/19] Omeprazole 40 mg PO DAILY 09/24/18 [History Confirmed 05/17/19] Ondansetron HCl [Zofran] 4 mg PO TID PRN 09/24/18 [History Confirmed 05/17/19] Furosemide 50 mg PO DAILY 02/23/19 [History Confirmed 05/17/19] Fluconazole 150 MG TAB* [Diflucan 150 MG TAB*] 150 mg PO ONCE #1 tablet [Rx] Sulfamethox/Trimethoprim DS* [Bactrim DS 800/160 TAB*] 1 tab PO BID #14 tab [Rx] cloNIDine TAB* [Catapres 0.1 MG TAB*] 0.2 mg PO BID 05/17/19 [History Confirmed 05/17/19] PMH/Surg Hx/FS Hx/Imm Hx Previously Healthy: Yes - Surgical History Surgical History: Yes Surgery Procedure, Year, and Place: carpel tunnel in both wrists [facility]-2014. shoulder,left, surgery Nov 2014. mass removed from stomach-2018 - Family History Known Family History: Positive: Diabetes Negative: Cardiac Disease, Hypertension - Social History Occupation: Employed Full-time Alcohol Use: None Substance Use Type: None Smoking Status (MU): Light Every Day Tobacco Smoker Type: Cigarettes Amount Used/How Often: 1/2 PPD Have You Smoked in the Last Year: Yes Household Exposure Type: Cigarettes - Immunization History Most Recent Influenza Vaccination: NONE 2016 Review of Systems All Other Systems Reviewed And Are Negative: Yes Skin: Positive: Other - redness of tip of finger Is Patient Immunocompromised?: No Physical Exam Triage Information Reviewed: Yes Appearance: Well-Appearing, Well-Nourished, Pain Distress Vital Signs: Initial Vital Signs Temp 99.3 F 05/17/19 19:14 Pulse 69 05/17/19 19:14 Resp 16 05/17/19 19:14 BP 143/77 05/17/19 19:14 Pulse Ox 100 05/17/19 19:14 Vital Signs Reviewed: Yes Eye Exam: Normal ENT Exam: Normal Dental Exam: Normal Neck exam: Normal Respiratory Exam: Normal Cardiovascular Exam: Normal Abdominal Exam: Normal Bowel Sounds: Positive: Present Musculoskeletal Exam: Normal Neurological Exam: Normal Psychological Exam: Normal Skin: Positive: Other - redness and swelling of the right middle finger cuticle Procedures - Sedation Patient Received Moderate/Deep Sedation with Procedure: No - Incision and Drainage Right Finger Anesthesia: Other - none Instrument(s): Needle Packing: Other - none Hand/Wrist Course/Dx - Course Course Of Treatment: hx obtained, exam performed ,meds reviewed, used 18 guage needle to prick small paraonychia of the affected finger. wound culture obtained - Differential Dx/Diagnosis Differential Diagnosis/HQI/PQRI: Paronychia Provider Diagnosis: Paronychia of right middle finger Discharge ED - Sign-Out/Discharge Documenting (check all that apply): Patient Departure All imaging exams completed and their final reports reviewed: No Studies - Discharge Plan Condition: Stable Disposition: HOME Prescriptions: Fluconazole 150 MG TAB* [Diflucan 150 MG TAB*] 150 mg PO ONCE #1 tablet Sulfamethox/Trimethoprim DS* [Bactrim DS 800/160 TAB*] 1 tab PO BID #14 tab Patient Education Materials: Paronychia (ED) Referrals: Radha Sainz MD [Primary Care Provider] - Additional Instructions: 1. soak the finger daily in warm soapy water 2. take the medication as prescribed. 3. Ibuprofen for pain 4. FOllow up if not improving with medication - Billing Disposition and Condition Condition: STABLE Disposition: Home - Attestation Statements Provider Attestation: I was available for consult. This patient was seen by the CINDY. The patient was not presented to, seen by, or examined by me. -Tavia
[2019-05-17] MEDS ORDERED: Sulfamethox/Trimethoprim DS 800/160* TAB PO ONE (20:03)
== END 2019-05-17 20:16 | disposition home or self-care (01) ==
LOC: UCCORT 18:47
DX: L03.011 Cellulitis of right finger (principal); Z88.5 Allergy status to narcotic agent; Z88.8 Allergy status to other drugs, medicaments and biological substances; F17.210 Nicotine dependence, cigarettes, uncomplicated
CPT/HCPCS: 10160; 87070; 87076; 87077; 87186; 87205; 87640; 87641; 99212; A9270-GY; G0463